=== PATIENT | male | born 1990 | race Hispanic/Latino ===

== ENCOUNTER 2016-10-24 06:08 | Day surgery (SDC) | payer MEDICARE, MEDICAID ==
[~2016-10-24 06:08] MED LIST: DECADRON ONE; NACL 0.9% 1000 ML 1,000 ML IV SCH; NORMODYNE IV ONE; VANCOMYCIN/NS 1 GM/250 ML 1 GM/250 ML BAG IV NR; XYLOCAINE MPF 2% ONE; ZOFRAN ONE
[2016-10-24 07:43] LABS: INR 1.28 (0.87-1.13)
[2016-10-24 07:44] LABS: Anion Gap 17 mmol/L; BUN/Creatinine Ratio 12.85; Blood Urea Nitrogen 9 mg/dL (9-20); Calcium 8.4 mg/dL (8.4-10.2); Carbon Dioxide 21 mmol/L (22-30); Glucose 94 mg/dL (75-100); Partial Thromboplastin Time 25.9 Sec. (24.2-36.6); Potassium 3.7 mmol/L (3.6-5.0); Sodium 138 mmol/L (137-145)
[2016-10-24 07:50] LABS: Hematocrit TNR % (35.5-45.6); Hemoglobin TNR gm/dl (11.8-15.2); Mean Corpuscular HGB Conc TNR % (32-34); Mean Corpuscular Hemoglobin TNR pg (28-32); Mean Corpuscular Volume TNR fl (84-94); Mean Platelet Volume TNR fl (6-12); Platelet Count TNR K/mm3 (140-440); Red Blood Count TNR M/mm3 (3.65-5.03); Red Cell Distribution Width TNR % (13.2-15.2); White Blood Count TNR K/mm3 (4.5-11.0)
[2016-10-24 07:51] LABS: Basophils % (Auto) TNR % (0.0-1.8); Diff Status TNR; Eosinophils % (Auto) TNR % (0.0-4.3)
[2016-10-24 09:16] LABS: Basophils % (Auto) 0.7 % (0.0-1.8); Eosinophils % (Auto) 2.8 % (0.0-4.3); Hematocrit 32.8 % (35.5-45.6); Hemoglobin 10.1 gm/dl (11.8-15.2); Mean Corpuscular HGB Conc 31 % (32-34); Mean Corpuscular Hemoglobin 22 pg (28-32); Mean Corpuscular Volume 70 fl (84-94); Platelet Count 230 K/mm3 (140-440); Red Blood Count 4.68 M/mm3 (3.65-5.03); White Blood Count 4.6 K/mm3 (4.5-11.0)
--- NOTE | 2016-10-24 09:52 | Anesthesia Consultation ---
Anesthesia Consult and Med Hx Date of service: 10/24/16 - Airway Anesthetic Teeth Evaluation: Poor, Chipped (multiple missing broken carries) ROM Head & Neck: Adequate Mental/Hyoid Distance: Adequate Mallampati Class: Class IV Intubation Access Assessment: Possibly Difficult - Pulmonary Exam CTA: Yes - Cardiac Exam Cardiac Exam: RRR - Pre-Operative Health Status ASA Pre-Surgery Classification: ASA3 Proposed Anesthetic Plan: General - Pulmonary Hx Asthma: Yes COPD: Yes Hx Sleep Apnea: Yes (Uses CPAP) - Cardiovascular System Hx Hypertension: Yes Hx Heart Attack/AMI: Yes (2010?) Hx Angina: Yes Hx Pacemaker: No Hx Heart Murmur: Yes - Central Nervous System Hx Seizures: Yes 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 TIA. [place] - 2010? Chrons DZ. Anxiety Depressio
--- NOTE | 2016-10-24 09:54 | Anesthesia Day of Surgery ---
Anesthesia Day of Surgery - Day of Surgery Patient Examined: Yes Patient H&P Reviewed: Yes Patient is NPO: Yes
[2016-10-24] MEDS ORDERED: VERSED IV ONE ×2 (10:43→10:50)
[2016-10-24] MEDS ORDERED: DILAUDID ONE ×2 (14:17→17:52)
[2016-10-24] MEDS ORDERED: DIPRIVAN 10 MG/ML IV ONE (14:17)
[2016-10-24] MEDS ORDERED: VERSED ONE (14:24)
[2016-10-24] MEDS ORDERED: VANCOMYCIN/NS 1 GM/250 ML 1 GM/250 ML BAG IV ONE (14:32)
[2016-10-24] MEDS ORDERED: HEPARIN/NS 5000 UNIT/500ML(CATH LAB) 500 ML IR ONE (14:42)
[2016-10-24] MEDS ORDERED: XYLOCAINE 2% INFILTRATI ONE ×2 (14:43→15:05)
[2016-10-24] MEDS ORDERED: HEPARIN 10,000 UNITS/10 ML ONE (15:19)
[2016-10-24] MEDS ORDERED: XYLOCAINE 2%/ EPI 1:200,000 INFILTRATI ONE (16:13)
--- NOTE | 2016-10-24 16:36 | Short Stay Summary ---
Short Stay Documentation Date of service: 10/24/16 Narrative H&P: 26 year old male with gastric bypass who has a right sided port for iron infusion which causes immense pain when infused preventing infusions. Needs port placement and port removal. - History Principal diagnosis: Port malfunction H&P: obtained from office - Allergies and Medications Current Medications: Allergies aspirin Allergy (Verified 05/26/14 23:56) Itching hives and itching cefaclor [From Ceclor] Allergy (Verified 05/26/14 23:56) Hives Penicillins Allergy (Verified 05/26/14 23:56) Hives tramadol Allergy (Unverified 10/24/16 06:09) Seizure haloperidol [From Haldol] Adverse Reaction (Unverified 10/24/16 06:10) ADVERSE REACTION haloperidol lactate [From Haldol] Adverse Reaction (Unverified 10/24/16 06:10) ADVERSE REACTION Home Medications Medication Instructions Recorded Confirmed Last Taken Type Diltiazem HCl [Cardizem LA] 180 mg PO BID 05/27/14 10/24/16 10/23/16 History Baclofen [Lioresal] 10 mg PO TID 09/15/14 10/24/16 10/23/16 History Lacosamide [Vimpat] 200 mg PO BID 09/15/14 04/24/15 04/24/15 History Dicyclomine [Bentyl] 20 mg PO QID #20 tablet 04/24/15 10/24/16 10/23/16 Rx FLUoxetine [PROzac] 20 mg PO QDAY 04/24/15 10/24/16 10/23/16 History LORazepam [Ativan] 2 mg PO BID 04/24/15 10/24/16 04/24/15 History Lacosamide [Vimpat] 200 mg PO BID 04/24/15 10/24/16 10/23/16 History Omeprazole [PriLOSEC] 20 mg PO QDAY #60 capsule. 04/24/15 10/24/16 10/23/16 Rx Phenytoin Chew [Dilantin Chew] 50 mg PO Q8H 04/24/15 10/24/16 10/23/16 History Primidone [Mysoline] 50 mg PO HS 04/24/15 10/24/16 10/23/16 History Sucralfate [Carafate] 1 gm PO BID #20 tablet 04/24/15 10/24/16 10/23/16 Rx Topiramate [Topamax] 25 mg PO BID 04/24/15 10/24/16 10/23/16 History carBAMazepine [TEGretol] 400 mg PO Q6HR 04/24/15 10/24/16 10/23/16 History tiZANidine [Zanaflex] 4 mg PO Q8HR 04/24/15 10/24/16 10/23/16 History Active Medications Sodium Chloride (Nacl 0.9% 1000 Ml) 1,000 mls @ 42 mls/hr IV DIRECT NARGIS Stop: 10/24/16 23:59 Last Admin: 10/24/16 08:31 Dose: 42 mls/hr - Physical exam General appearance: no acute distress HEENT: EOMI Lungs: Normal air movement Gastrointestinal: normal Extremities: normal temperature, normal color - Brief post op/procedure progress note Date of procedure: 10/24/16 Pre-op diagnosis: Port malfunction Post-op diagnosis: same Procedure: 1. Port placement 2. Port removal Anesthesia: local (w/ conscious sedation) Surgeon: KRISHNA ANDREWS Estimated blood loss: minimal Condition: stable - Hospital course Hospital course: Tolerated procedure well. No issues. - Disposition Condition at discharge: Stable Disposition: [id number] TO HOME OR SELFCARE - Discharge Diagnoses (1) Complications of gastric bypass surgery Status: Acute (2) Malfunction of portocaval shunt Status: Acute Qualifiers: Encounter type: E Short Stay Discharge Plan Activity: advance as tolerated Weight Bearing Status: Weight Bear as Tolerated Diet: advance as tolerated Wound: keep clean and dry, other (do not get wound wet for 1 week; sponge bath for 1st week ; take off clear adhesive after 24 hrs ) Follow up with: PRIMARY CARE, [Primary Care Provider] - 7 Days
--- NOTE | 2016-10-24 16:39 | Operative Report ---
Operative Report Operative Report: EXAM: 1. Ultrasound-guided puncture of the left internal jugular vein 2. Injection from the left internal jugular vein sheath 3. Venography of the SVC 4. Fluoroscopic-guided placement of a left internal jugular tunneled 8 Fr BARD Power port placement. 5. Fluoroscopic-guided removal of a right subclavian vein port DATE: 10/24/16 INDICATION: 26-year-old male status post gastric bypass requiring iron infusions with right-sided port malfunction. MEDICATIONS: Please see nursing report for full details. ANESTHESIA: GETA DEVICES: 8 Fr single lumen power port CONTRAST: None TOOL CHECKER: Shlomo Wang MD PROCEDURE: The risks, benefits, and alternatives were discussed and informed consent was obtained. The patient was transported to the angiography suite in satisfactory/ stable condition and was transported onto the angiography table. The patient's left internal jugular vein was assessed with ultrasound and determined to be patent prior to procedure. The patient was prepped and draped in a sterile fashion. The puncture site was anesthetized. Under sonographic guidance, the left internal jugular vein was punctured with a 21-gauge micropuncture needle and a 0.018 inch wire was advanced into the inferior vena cava. The micropuncture needle was exchanged for a transitional dilator and the wire was retracted into the right atrium to dayo intravascular distance. The wire and inner dilator were removed. Digital subtraction angiography was performed to the sheath demonstrating patency of the left innominate vein and the superior vena cava. 0.035 inch Amplatz wire was advanced through the transitional dilator into the inferior vena cava. A suitable port pocket site was identified on the patient's chest inferior and lateral to the venotomy. The site was anesthetized with local anesthetic at the pocket and the track was anesthetized. Incision was made with a 15 blade extending approximately 2 cm. The port was created with the use of a hemostat and hemostasis was achieved with manual compression and with the use of a Bovie device. The port pocket was irrigated. The port was tested and the port was attached to the tubing. The port was the retested and attached to the tunneling device. The port was placed in the pocket and then tunneled to the venotomy. The port tubing was cut to predetermined length. Over the 0.035 inch wire, serial dilatation was performed with ultimate placement of a peel-away sheath. The catheter was advanced through the peel- away sheath after the wire was removed and positioned centrally under fluoroscopic guidance. The peel-away sheath was removed. The pocket was closed in 2 layers with multiple deep interrupted 3-0 Vicryl sutures with a running subcuticular 4-0 Vicryl suture. The venotomy was closed with a single deep interrupted 3-0 Vicryl suture. Dermabond was applied to both sites and Steri-Strips were then applied. The port was the catheter was charged with heparin 200 units/mL. Sterile dressing applied. Attention was then switched to the right chest. Area around the port was prepped and draped in a sterile fashion. The port site was then anesthetized with local anesthetic. 10 blade was used to make a 2.5 centimeter incision along the existing port healed incision. Curved hemostats were used to slowly separate the site and expose the port. As this was done, hemostasis was achieved with the use of compression and Bovie. The port tubing was expose the tubing was clamped. The tubing was then freed and completely extracted. Pressure was held at the prior venotomy sites after tubing removal until hemostasis was achieved. Securing sutures were cut and the port was then removed intact. The area was then evaluated and washed with sterile saline. Hemostasis was achieved with manual compression. The site was then closed in 2 layers with interrupted 3-0 Vicryl sutures and a running 4-0 Vicryl subcuticular suture. Dermabond was applied. Steri-Strips were applied. Sterile dressing was then applied. The patient tolerated the procedure well. There were no immediate postprocedural complications. The patient was transferred from the angiography suite back to the PACU unit in stable. FINDINGS: 1. Excellent flow was obtained through the left sided port. 2. The left sided catheter tip is in the right atrium. 3. Patency of the left innominate vein and the superior vena cava. 4. Successful removal of a right subclavian port. [employer] radiograph demonstrates a intact port. Post procedural radiograph demonstrates successful right chest port removal without residual right chest tubing. IMPRESSION: 1. Successful ultrasound and fluoroscopically guided placement of a left internal jugular tunneled 8 [place] Bard signal lumen power port. 2. Fluoroscopic-guided removal of a right subclavian vein port
--- NOTE | 2016-10-24 17:48 | Post Anesthesia Evaluation ---
- Post Anesthesia Evaluation Patient Participated: Yes Airway Patent: Yes Stable Respiratory Function: Yes Temp > 96.8F: Yes Pain Manageable: Yes Adequeate Hydration: Yes Anesthesia Complications: No Block Receding Appropriately: Not Applicable
[2016-10-24] MEDS ORDERED: DILAUDID IV PRN (17:59)
[2016-10-24] MEDS ORDERED: TORADOL IV ONE (18:20)
[2016-10-24] MEDS ORDERED: PERCOCET 5/325 PO ONE (18:38)
[2016-10-24 19:20] VITALS: BP 133/96
--- NOTE | 2016-10-25 07:31 | Vascular Lab Report ---
MISCELLANEOUS VESSEL IDENTIFICATION: COMMENTS ON THE SCAN: The left internal jugular vein was identified and under real-time ultrasound guidance was cannulated. IMPRESSION: Successful ultrasound guided vein cannulation.
== END 2016-10-24 19:30 | disposition home or self-care (01) ==
LOC: OPU 06:08
PROVIDERS: ATTEND Radiology Diagnostic Radiology
DX: T82.594A Other mechanical complication of infusion catheter, initial encounter (principal); D64.9 Anemia, unspecified; I10 Essential (primary) hypertension; K21.9 Gastro-esophageal reflux disease without esophagitis; F17.200 Nicotine dependence, unspecified, uncomplicated; J44.9 Chronic obstructive pulmonary disease, unspecified; G47.30 Sleep apnea, unspecified; E11.9 Type 2 diabetes mellitus without complications; I70.211 Atherosclerosis of native arteries of extremities with intermittent claudication, right leg; I87.2 Venous insufficiency (chronic) (peripheral); E66.9 Obesity, unspecified; Z68.37 Body mass index [BMI] 37.0-37.9, adult; Z87.19 Personal history of other diseases of the digestive system; Z98.84 Bariatric surgery status; Z79.899 Other long term (current) drug therapy; Z88.8 Allergy status to other drugs, medicaments and biological substances; Z88.0 Allergy status to penicillin; Z86.73 Personal history of transient ischemic attack (TIA), and cerebral infarction without residual deficits; Z88.1 Allergy status to other antibiotic agents; Z80.9 Family history of malignant neoplasm, unspecified; Z82.49 Family history of ischemic heart disease and other diseases of the circulatory system; Z83.6 Family history of other diseases of the respiratory system; Y83.8 Other surgical procedures as the cause of abnormal reaction of the patient, or of later complication, without mention of misadventure at the time of the procedure
CPT/HCPCS: 36415; 36561; 36590; 76937; 80048; 82962; 85025; 85610; 85730; 96374; 96375; 96376; C1769; C1788; J1100; J1170; J1644; J1885; J2250; J2405; J2704; J3370; J7030; Q9967

== ENCOUNTER 2020-08-24 07:39 | Emergency (ER) | payer MEDICARE ==
--- NOTE | 2020-08-24 08:12 | Event Note ---
ED Screening Note Date of service: 08/24/20 Time: 08:11 ED Screening Note: 30-year-old male resents to the ER today with complaints of coffee-ground emesis and diarrhea and epigastric pain since yesterday. Past medical history significant for gastric bypass in 2010, upper GI bleed requiring blood transfusion about a year ago, and history of small bowel obstruction His GI specialist is Dr. Amor Status post appendectomy and cholecystectomy He denies EtOH abuse, NSAID abuse, known gastric ulcers This initial assessment/diagnostic orders/clinical plan/treatment(s) is/are subject to change based on patients health status, clinical progression and re- assessment by fellow clinical providers in the ED. Further treatment and workup at subsequent clinical providers discretion. Patient/guardian urged not to elope from the ED as their condition may be serious if not clinically assessed and ma naged. Initial orders include: Abdominal pain order set
[2020-08-24] MEDS ORDERED: ONDANSETRON 4 MG/2 ML INJ IV ONE (08:22)
--- NOTE | 2020-08-24 08:23 | Emergency Department Report ---
ED General Adult HPI - General Chief complaint: Abdominal Pain Stated complaint: STOMACH PAIN/VOMITTING BLOOD Time Seen by Provider: 08/24/20 08:20 Source: patient Mode of arrival: Ambulatory Limitations: No Limitations - History of Present Illness Initial comments: Patient is a 30-year-old male with history of gastric bypass 10 years ago for severe obesity (700 pounds) who presents emergency department for evaluation of 24 hours of constant moderate sharp epigastric pain associated with nausea and vomiting with possible blood. Patient denies diarrhea, denies fever. Patient denies chest pain or shortness of breath. - Related Data Home Medications Medication Instructions Recorded Confirmed Last Taken Diltiazem HCl [Cardizem LA] 180 mg PO BID 05/27/14 10/24/16 10/23/16 180 mg Baclofen [Lioresal] 10 mg PO TID 09/15/14 10/24/16 10/23/16 Lacosamide [Vimpat] 200 mg PO BID 09/15/14 04/24/15 04/24/15 FLUoxetine [PROzac] 20 mg PO QDAY 04/24/15 10/24/16 10/23/16 LORazepam [Ativan] 2 mg PO BID 04/24/15 10/24/16 04/24/15 Lacosamide [Vimpat] 200 mg PO BID 04/24/15 10/24/16 10/23/16 Phenytoin Chew [Dilantin Chew] 50 mg PO Q8H 04/24/15 10/24/16 10/23/16 Primidone [Mysoline] 50 mg PO HS 04/24/15 10/24/16 10/23/16 Topiramate [Topamax] 25 mg PO BID 04/24/15 10/24/16 10/23/16 carBAMazepine [TEGretol] 400 mg PO Q6HR 04/24/15 10/24/16 10/23/16 tiZANidine [Zanaflex] 4 mg PO Q8HR 04/24/15 10/24/16 10/23/16 Previous Rx's Medication Instructions Recorded Last Taken Type Dicyclomine [Bentyl] 20 mg PO QID #20 tablet 04/24/15 10/23/16 Rx Omeprazole [PriLOSEC] 20 mg PO QDAY #60 capsule. 04/24/15 10/23/16 Rx Sucralfate [Carafate] 1 gm PO BID #20 tablet 04/24/15 10/23/16 Rx HYDROmorphone [Dilaudid] 2 mg PO Q4HR PRN #20 tablet 10/24/16 Unknown Rx oxyCODONE [roxiCODONE] 5 mg PO Q6HR PRN #30 tablet 10/24/16 Unknown Rx Pantoprazole Sodium [Protonix] 40 mg PO BID #60 granpkt. 08/24/20 Unknown Rx Sucralfate [Carafate] 1 gm PO Q6HR #30 udc 08/24/20 Unknown Rx Allergies Allergy/AdvReac Type Severity Reaction Status Date / Time aspirin Allergy Itching Verified 08/24/20 07:49 cefaclor [From Ceclor] Allergy Hives Verified 08/24/20 07:49 Penicillins Allergy Hives Verified 08/24/20 07:49 tramadol Allergy Seizure Verified 08/24/20 07:49 haloperidol [From Haldol] AdvReac ADVERSE Verified 08/24/20 07:49 REACTION haloperidol lactate AdvReac ADVERSE Verified 08/24/20 07:49 [From Haldol] REACTION ED Review of Systems ROS: Stated complaint: STOMACH PAIN/VOMITTING BLOOD Other details as noted in HPI Comment: All other systems reviewed and negative ED Past Medical Hx - Past Medical History Hx Hypertension: Yes 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 gastritis, protein C deficiency - Surgical History Hx Coronary Stent: No Hx Pacemaker: No Hx Cholecystectomy: Yes Hx Appendectomy: Yes Additional Surgical History: gastric bypass (2010), - Social History Smoking Status: Never Smoker Substance Use Type: None - Medications Home Medications: Home Medications Medication Instructions Recorded Confirmed Last Taken Type Diltiazem HCl [Cardizem LA] 180 mg PO BID 05/27/14 10/24/16 10/23/16 History 180 mg Baclofen [Lioresal] 10 mg PO TID 09/15/14 10/24/16 10/23/16 History Lacosamide [Vimpat] 200 mg PO BID 09/15/14 04/24/15 04/24/15 History Dicyclomine [Bentyl] 20 mg PO QID #20 tablet 04/24/15 10/24/16 10/23/16 Rx FLUoxetine [PROzac] 20 mg PO QDAY 04/24/15 10/24/16 10/23/16 History LORazepam [Ativan] 2 mg PO BID 04/24/15 10/24/16 04/24/15 History Lacosamide [Vimpat] 200 mg PO BID 04/24/15 10/24/16 10/23/16 History Omeprazole [PriLOSEC] 20 mg PO QDAY #60 capsule. 04/24/15 10/24/16 10/23/16 Rx Phenytoin Chew [Dilantin Chew] 50 mg PO Q8H 04/24/15 10/24/16 10/23/16 History Primidone [Mysoline] 50 mg PO HS 04/24/15 10/24/16 10/23/16 History Sucralfate [Carafate] 1 gm PO BID #20 tablet 04/24/15 10/24/16 10/23/16 Rx Topiramate [Topamax] 25 mg PO BID 04/24/15 10/24/16 10/23/16 History carBAMazepine [TEGretol] 400 mg PO Q6HR 04/24/15 10/24/16 10/23/16 History tiZANidine [Zanaflex] 4 mg PO Q8HR 04/24/15 10/24/16 10/23/16 History HYDROmorphone [Dilaudid] 2 mg PO Q4HR PRN #20 tablet 10/24/16 Unknown Rx oxyCODONE [roxiCODONE] 5 mg PO Q6HR PRN #30 tablet 10/24/16 Unknown Rx Pantoprazole Sodium [Protonix] 40 mg PO BID #60 granpkt. 08/24/20 Unknown Rx Sucralfate [Carafate] 1 gm PO Q6HR #30 udc 08/24/20 Unknown Rx ED Physical Exam - General Limitations: No Limitations General appearance: alert, in no apparent distress - Head Head exam: Present: atraumatic, normocephalic - Eye Eye exam: Present: normal appearance - ENT ENT exam: Present: mucous membranes moist - Neck Neck exam: Present: normal inspection - Respiratory Respiratory exam: Present: normal lung sounds bilaterally. Absent: respiratory distress - Cardiovascular Cardiovascular Exam: Present: regular rate, normal rhythm - GI/Abdominal GI/Abdominal exam: Present: soft, tenderness (Moderate epigastric tenderness), normal bowel sounds - Rectal Rectal exam: Present: deferred - Extremities Exam Extremities exam: Present: normal inspection - Back Exam Back exam: Present: normal inspection - Neurological Exam Neurological exam: Present: alert, oriented X3 - Psychiatric Psychiatric exam: Present: normal affect, normal mood - Skin Skin exam: Present: warm, dry, intact, normal color. Absent: rash ED Course Vital Signs 08/24/20 08/24/20 07:53 13:07 Temperature 98.6 F Pulse Rate 91 H 87 Respiratory 20 18 Rate Blood Pressure 152/92 Blood Pressure 147/93 [Left] O2 Sat by Pulse 98 98 Oximetry - Reevaluation(s) Reevaluation #1: 08/24/20 08:58 Patient initially treated with IV morphine 2 mg x 1, IV Zofran 4 mg x 1, IV normal saline 1 L x 1. Patient states he has no reaction to IV contrast, however, has allergic reaction to p.o. contrast, noting he got hives when drinking contrast at a hospital in [place]. Advised patient premedicate given risk of leak at site of previous surgery, patient now states he gets short of breath from p.o. contrast. Consequently given barium as alternative p.o. contrast. 08/24/20 08:59 08/24/20 10:00 Dr. Bose contacted, case discussed, recommends no intervention at present time, recommends consult surgery. Case discussed with Dr. Tierney who discusses with Dr. Stout and reviews films/diagnostics, Dr. Tierney recommends outpatient follow-up with Rx for protonix and carafate. Discussed at length with patient results of diagnostics and plan. Printed out and reviewed CT findings with patient, patient given copy of report. Patient flagged on [facility] government website as being suspicious for doctor shopping for narcotic pain medication, patient alerted to the status, is advised to minimize narcotic pain medication as tolerated. ED Medical Decision Making - Lab Data Result diagrams: 08/24/20 08:10 08/24/20 08:10 Labs 08/24/20 08/24/20 08/24/20 08:10 08:10 08:20 WBC 4.9 RBC 4.55 Hgb 10.3 L Hct 32.8 L MCV 72 L MCH 23 L MCHC 32 RDW 16.4 H Plt Count 206 Lymph % (Auto) 19.3 [place] % (Auto) 9.0 H Eos % (Auto) 1.1 Baso % (Auto) 0.5 Lymph # (Auto) 1.0 L [place] # (Auto) 0.4 Eos # (Auto) 0.1 Baso # (Auto) 0.0 Seg Neutrophils % 70.1 H Seg Neutrophils # 3.5 Sodium 135 L Potassium 4.1 Chloride 102.1 Carbon Dioxide 25 Anion Gap 12 BUN 11 Creatinine 0.8 Estimated GFR > 60 BUN/Creatinine Ratio 14 Glucose 92 Calcium 8.8 Total Bilirubin 0.30 AST 19 ALT 17 Alkaline Phosphatase 117 Total Protein 7.0 Albumin 4.1 Albumin/Globulin Ratio 1.4 Lipase 24 Urine Color Urine Turbidity Urine pH Ur Specific [place] Urine Protein Urine Glucose (UA) Urine Ketones Urine Blood Urine Nitrite Ur Reducing Substances Urine Bilirubin Urine Ictotest Urine Urobilinogen Ur Leukocyte Esterase Urine WBC (Auto) Urine RBC (Auto) U Epithel Cells (Auto) Blood Type A POSITIVE Antibody Screen Negative 08/24/20 Unknown WBC RBC Hgb Hct MCV MCH MCHC RDW Plt Count Lymph % (Auto) [place] % (Auto) Eos % (Auto) Baso % (Auto) Lymph # (Auto) [place] # (Auto) Eos # (Auto) Baso # (Auto) Seg Neutrophils % Seg Neutrophils # Sodium Potassium Chloride Carbon Dioxide Anion Gap BUN Creatinine Estimated GFR BUN/Creatinine Ratio Glucose Calcium Total Bilirubin AST ALT Alkaline Phosphatase Total Protein Albumin Albumin/Globulin Ratio Lipase Urine Color Yellow Urine Turbidity Clear Urine pH 6.0 Ur Specific Florence 1.018 Urine Protein <15 mg/dl Urine Glucose (UA) Neg Urine Ketones Neg Urine Blood Neg Urine Nitrite Neg Ur Reducing Substances Not Reportable Urine Bilirubin Neg Urine Ictotest Not Reportable Urine Urobilinogen < 2.0 Ur Leukocyte Esterase Neg Urine WBC (Auto) < 1.0 Urine RBC (Auto) < 1.0 U Epithel Cells (Auto) < 1.0 Blood Type Antibody Screen Vital Signs 08/24/20 07:53 Temperature 98.6 F Pulse Rate 91 H Respiratory 20 Rate Blood Pressure 152/92 O2 Sat by Pulse 98 Oximetry - Radiology Data Radiology results: report reviewed CT ABDOMEN AND PELVIS WITH CONTRAST INDICATION / CLINICAL INFORMATION: Abdominal pain. TECHNIQUE: Axial CT images were obtained through the abdomen and pelvis after IV contrast. All CT scans at this location are performed using CT dose reduction for ALARA by means of automated exposure control. COMPARISON: None available. FINDINGS: LOWER CHEST: No significant abnormality LIVER: No significant abnormality GALLBLADDER/BILIARY TREE: Cholecystectomy. PANCREAS: No significant abnormality SPLEEN: No significant abnormality ADRENALS: No significant abnormality KIDNEYS / URETER: No significant abnormality URINARY BLADDER: No significant abnormality REPRODUCTIVE ORGANS: No significant abnormality STOMACH / SMALL BOWEL: There are postoperative changes of gastric bypass with intussusception at the small bowel anastomosis. No evidence of obstruction. No bowel inflammation. COLON: The colon is unremarkable. Surgical changes about the cecum most likely reflect prior appendectomy. LYMPH NODES: No significant adenopathy. VASCULATURE: Abdominal aorta is normal in caliber. IVC filter is demonstrated within the infrarenal IVC. OTHER: No free air, free fluid, or focal fluid collection is identified. SKELETAL SYSTEM: No acute osseous findings. IMPRESSION: 1. Gastric bypass with intussusception of the small bowel anastomosis. This is typically transient and likely postsurgical in etiology. Recommend continued follow-up to resolution. No evidence of bowel obstruction or inflammation. 2. Otherwise, no acute abnormality. 3. IVC filter, as below. IVC Filter Recommendation: IVC filters should be removed if possible when they are no longer clinically necessary. (1) Refer to the established IVC filter management plan; (2) If there is no established plan for the patient's IVC filter, consider referral to interventional/vascular clinician on a nonemergent basis for evaluation. Signer Name: Deb Borges MD Signed: 08/24/2020 10:33 AM Workstation Name: [facility] Transcribed By: MARTINEZ Dictated By: DEB BORGES MD Electronically Authenticated By: DEB BORGES MD Signed Date/Time: 08/24/20 1033 - Medical Decision Making 08/01/2020 1 08/01/2020 FENTANYL 50 MCG/HR PATCH 10.0 30 [place] AGR [id number] PIEDM ([id number]) 0 120.0 [place] 07/04/2020 1 07/04/2020 OXYCODONE- ACETAMINOPHEN 10-325 84.0 28 KING AGR [id number] PIEDM (8746) 0 45.0 [place] 06/28/2020 3 06/28/2020 LORAZEPAM 2 MG/ML VIAL 25.0 25 OG IWU [id number] DAVIS ([id number]) 0 [place] 06/25/2020 4 06/25/2020 OXYCODONE- ACETAMINOPHEN 5-325 10.0 2 [place] UGB [id number] CHARLEY (8247) 0 37.5 [place] 06/20/2020 3 06/19/2020 OXYCODONE- ACETAMINOPHEN 5-325 9.0 3 AL YOU [id number] HUDSO (6391) 0 22.5 [place] 06/08/2020 1 06/08/2020 OXYCODONE- ACETAMINOPHEN 5-325 30.0 10 AL SAF [id number] PIEDM (8746) 0 22.5 [place] 05/31/2020 4 05/26/2020 FENTANYL 50 MCG/HR PATCH 2.0 7 AN KE [id number] CHARLEY ([id number]) 0 102.86 [place] 05/29/2020 2 05/26/2020 OXYCODONE- ACETAMINOPHEN 10-325 10.0 2 AN KE [id number] BRI ([id number]) 0 75.0 [place] 05/17/2020 3 05/15/2020 OXYCODONE- ACETAMINOPHEN 5-325 45.0 15 KH RUY [id number] HUDSO (4791) 0 22.5 [place] 05/16/2020 3 05/16/2020 LORAZEPAM 2 MG/ML VIAL 25.0 25 OG IWU [id number] HUDSO (4791) 0 [place] 05/02/2020 3 05/02/2020 OXYCODONE-ACETA MINOPHEN 5-325 45.0 15 KH RUY [id number] HUDSO (4791) 0 22.5 [place] 04/29/2020 2 04/28/2020 HYDROCODONE- ACETAMIN 5-325 MG 5.0 1 NA JAIMES [id number] BRI ([id number]) 0 25.0 [place] 04/25/2020 3 04/25/2020 HYDROCODONE- ACETAMIN 5-325 MG 8.0 2 AL LEV [id number] HUDSO (1191) 0 20.0 [place] 04/18/2020 3 04/14/2020 LORAZEPAM 2 MG/ML VIAL 25.0 25 OG IWU [id number] HUDSO (4791) 0 [place] 04/18/2020 3 04/14/2020 LORAZEPAM 2 MG/ML VIAL 1.0 25 OG IWU [id number] HUDSO (4791) 0 Comm Ins 04/11/2020 2 04/03/2020 HYDROCODONE-ACETAMIN 5-325 MG 5.0 2 ANA ROSA AMANDA [id number] BRI (0516) 0 12.5 [place] 03/18/2020 4 03/18/2020 HYDROMORPHONE 4 MG TABLET 60.0 30 ID ALL [id number] CHARLEY ([id number]) 0 32.0 [place] 02/17/2020 4 02/17/2020 MORPHINE SULF ER 15 MG TABLET 60.0 30 ID ALL [id number] CHARLEY ([id number]) 0 30.0 [place] 02/08/2020 5 02/08/2020 HYDROCODONE- ACETAMIN 5-325 MG 60.0 30 ID ALL [id number] CHARLEY ([id number]) 0 10.0 [place] 01/20/2020 4 01/20/2020 XTAMPZA ER 13.5 MG CAPSULE 60.0 30 ID ALL [id number] CHARLEY ([id number]) 0 40.5 [place] 01/13/2020 4 01/13/2020 OXYCODONE- ACETAMINOPHEN 10-325 20.0 3 JA FRA [id number] CHARLEY ([id number]) 0 100.0 MME Comm Ins 01/10/2020 3 08/25/2019 LORAZEPAM 2 MG/ML VIAL 10.0 10 OG U [id number] HUDSO (4791) 4 [place] 01/03/2020 4 01/03/2020 HYDROCODONE- ACETAMIN 5-325 MG 60.0 30 ID ALL [id number] CHARLEY ([id number]) 0 10.0 [place] 12/15/2019 2 12/13/2019 LORAZEPAM 2 MG TABLET 30.0 30 PO ARNALDO [id number] BRI (0585) 0 [place] 12/04/2019 4 12/01/2019 HYDROMORPHONE 4 MG TABLET 90.0 30 ID ALL [id number] CHARLEY ([id number]) 0 48.0 [place] Critical care attestation.: If time is entered above; I have spent that time in minutes in the direct care of this critically ill patient, excluding procedure time. ED Disposition Clinical Impression: Abdominal pain, Intussusception Disposition: DC-01 TO HOME OR SELFCARE Is pt being admited?: No Condition: Stable Instructions: Abdominal Pain, Adult, [id number], Intussusception, Pediatric Additional Instructions: Follow-up with surgery and/or PMD and/or GI in 1 to 2 days for reevaluation. Please note you may require further imaging to ensure resolution of intussusception occurring after previous surgery site. Return to the emergency department for worsening symptoms. Prescriptions: Sucralfate [Carafate] 1 gm PO Q6HR #30 udc Pantoprazole Sodium [Protonix] 40 mg PO BID #60 granpkt.dr Referrals: ELODIA KELLER [Other] - 3-5 Days NIVIA SONG MD [Staff Physician] - 3-5 Days HELGA STOUT MD [Staff Physician] - 3-5 Days
[2020-08-24 08:59] LABS: Basophils % (Auto) 0.5 % (0.0-1.8); Eosinophils # (Auto) 0.1 K/mm3 (0.0-0.4); Eosinophils % (Auto) 1.1 % (0.0-4.3); Hematocrit 32.8 % (35.5-45.6); Hemoglobin 10.3 gm/dl (11.8-15.2); Lymphocytes % (Auto) 19.3 % (13.4-35.0); Mean Corpuscular HGB Conc 32 % (32-34); Mean Corpuscular Volume 72 fl (84-94); Monocytes # (Auto) 0.4 K/mm3 (0.0-0.8); Platelet Count 206 K/mm3 (140-440); Red Blood Count 4.55 M/mm3 (3.65-5.03); Red Cell Distribution Width 16.4 % (13.2-15.2)
[2020-08-24] MEDS ORDERED: MORPHINE 2 MG/1 ML INJ IV ONE (08:59)
[2020-08-24 09:14] LABS: Alanine Aminotransferase 17 units/L (7-56); Albumin 4.1 g/dL (3.9-5); BUN/Creatinine Ratio 14; Blood Urea Nitrogen 11 mg/dL (9-20); Calcium 8.8 mg/dL (8.4-10.2); Hemolysis Index 2
[2020-08-24 09:31] LABS: Bilirubin,Urine NEG (Negative); Blood,Urine NEG (Negative); Color,Urine Yellow (Yellow); Protein,Urine <15 mg/dL mg/dL (Negative); Urobilinogen,Urine < 2.0 mg/dL (<2.0); WBC,Urine < 1.0 /HPF (0.0-6.0)
[2020-08-24 09:32] LABS: RBC,Urine < 1.0 /HPF (0.0-6.0)
--- NOTE | 2020-08-24 10:37 | Cat Scan Report ---
CT ABDOMEN AND PELVIS WITH CONTRAST INDICATION / CLINICAL INFORMATION: Abdominal pain. TECHNIQUE: Axial CT images were obtained through the abdomen and pelvis after IV contrast. All CT sc ans at this location are performed using CT dose reduction for ALARA by means of automated exposure c ontrol. COMPARISON: None available. FINDINGS: LOWER CHEST: No significant abnormality LIVER: No significant abnormality GALLBLADDER/BILIARY TREE: Cholecystectomy. PANCREAS: No significant abnormality SPLEEN: No significant abnormality ADRENALS: No significant abnormality KIDNEYS / URETER: No significant abnormality URINARY BLADDER: No significant abnormality REPRODUCTIVE ORGANS: No significant abnormality STOMACH / SMALL BOWEL: There are postoperative changes of gastric bypass with intussusception at the small bowel anastomosis. No evidence of obstruction. No bowel inflammation. COLON: The colon is unremarkable. Surgical changes about the cecum most likely reflect prior appendec kvng. LYMPH NODES: No significant adenopathy. VASCULATURE: Abdominal aorta is normal in caliber. IVC filter is demonstrated within the infrarenal I VC. OTHER: No free air, free fluid, or focal fluid collection is identified. SKELETAL SYSTEM: No acute osseous findings. IMPRESSION: 1. Gastric bypass with intussusception of the small bowel anastomosis. This is typically transient an d likely postsurgical in etiology. Recommend continued follow-up to resolution. No evidence of bowel obstruction or inflammation. 2. Otherwise, no acute abnormality. 3. IVC filter, as below. IVC Filter Recommendation: IVC filters should be removed if possible when they are no longer clinical ly necessary. (1) Refer to the established IVC filter management plan; (2) If there is no established plan for the patient's IVC filter, consider referral to interventional/vascular clinician on a nonem ergent basis for evaluation. Signer Name: Ever Borges MD Signed: 08/24/2020 10:33 AM Workstation Name: [employer]
[2020-08-24 13:08] VITALS: BP 147/93
== END 2020-08-24 13:08 | disposition home or self-care (01) ==
LOC: ED 07:39
DX: K56.1 Intussusception (principal); R10.13 Epigastric pain; I10 Essential (primary) hypertension; I25.2 Old myocardial infarction; E11.9 Type 2 diabetes mellitus without complications; K21.9 Gastro-esophageal reflux disease without esophagitis; G43.909 Migraine, unspecified, not intractable, without status migrainosus; R56.9 Unspecified convulsions; J44.9 Chronic obstructive pulmonary disease, unspecified; Z86.73 Personal history of transient ischemic attack (TIA), and cerebral infarction without residual deficits; Z90.49 Acquired absence of other specified parts of digestive tract; Z98.890 Other specified postprocedural states; Z79.899 Other long term (current) drug therapy; Z88.0 Allergy status to penicillin; Z88.8 Allergy status to other drugs, medicaments and biological substances
CPT/HCPCS: 36415; 74177; 80053; 81001; 83690; 85025; 86850; 86900; 86901; 96374; 96375; 99284; J2270; J2405; Q9967

== ENCOUNTER 2021-07-26 21:15 | Emergency (ER) | payer MEDICARE ==
[2021-07-26 22:25] VITALS: BP 153/93
[2021-07-26 22:58] LABS: Bilirubin,Urine NEG (Negative); Blood,Urine NEG (Negative); Color,Urine Yellow (Yellow); Mucus,Urine 1+ /HPF; Protein,Urine <15 mg/dL mg/dL (Negative); RBC,Urine < 1.0 /HPF (0.0-6.0)
== END 2021-07-27 02:35 | disposition left against medical advice (07) ==
LOC: ED 21:15
DX: K92.0 Hematemesis (principal); Z53.21 Procedure and treatment not carried out due to patient leaving prior to being seen by health care provider
CPT/HCPCS: 81001

== ENCOUNTER 2021-07-27 20:30 | Emergency (ER) | payer MEDICARE ==
[2021-07-27 20:49] VITALS: BP 153/93
[2021-07-27 21:11] LABS: Bilirubin,Urine NEG (Negative); Blood,Urine NEG (Negative); Color,Urine Yellow (Yellow); Mucus,Urine FEW /HPF; Protein,Urine <15 mg/dL mg/dL (Negative)
[2021-07-27 22:04] LABS: Alanine Aminotransferase 23 units/L (7-56); Albumin 4.2 g/dL (3.9-5); Blood Urea Nitrogen 16 mg/dL (9-20); Calcium 9.1 mg/dL (8.4-10.2); Hemolysis Index 128
[2021-07-27 22:16] LABS: BUN/Creatinine Ratio 23
[2021-07-27 22:34] LABS: Mean Corpuscular HGB Conc 28 % (32-34); Platelet Count 294 K/mm3 (140-440); Red Blood Count 5.72 M/mm3 (3.65-5.03)
[2021-07-27 22:47] LABS: Hemoglobin 11.1 gm/dl (11.8-15.2); Mean Corpuscular Volume 68 fl (84-94)
== END 2021-07-27 23:59 | disposition home or self-care (01) ==
LOC: ED 20:30
DX: K92.0 Hematemesis (principal); Z53.21 Procedure and treatment not carried out due to patient leaving prior to being seen by health care provider
CPT/HCPCS: 36415; 80053; 81001; 85025

== ENCOUNTER 2021-09-22 18:59 | Emergency (ER) | payer MEDICARE ==
[2021-09-22 21:34] LABS: Basophils # (Auto) 0.1 K/mm3 (0.0-0.1); Basophils % (Auto) 0.8 % (0.0-1.8); Eosinophils % (Auto) 0.1 % (0.0-4.3); Lymphocytes # (Auto) 1.1 K/mm3 (1.2-5.4); Lymphocytes % (Auto) 15.2 % (13.4-35.0); Mean Corpuscular HGB Conc 29 % (32-34); Monocytes # (Auto) 0.7 K/mm3 (0.0-0.8); Monocytes % (Auto) 9.7 % (0.0-7.3); Red Blood Count 5.53 M/mm3 (3.65-5.03); Red Cell Distribution Width 17.2 % (13.2-15.2)
[2021-09-22 21:41] LABS: Hematocrit 36.5 % (35.5-45.6); Hemoglobin 10.6 gm/dl (11.8-15.2); Mean Corpuscular Volume 66 fl (84-94); Platelet Count 188 K/mm3 (140-440)
[2021-09-22 21:55] LABS: Alanine Aminotransferase 21 units/L (7-56); BUN/Creatinine Ratio 17; Blood Urea Nitrogen 17 mg/dL (9-20); Calcium 9.7 mg/dL (8.4-10.2); Hemolysis Index 19
--- NOTE | 2021-09-23 11:45 | Emergency Department Report ---
ED GI Bleed HPI - General Chief complaint: GI Bleed Stated complaint: CHEST HURTING/VOMITING BLOOD Time Seen by Provider: 09/23/21 11:35 Source: patient Mode of arrival: Ambulatory Limitations: No Limitations - History of Present Illness Initial comments: Patient is a 31 years old male with history of gastric bypass surgery. Patient presented to the ER complaining of epigastric abdominal pain, sharp with no radiation. Patient stated that symptom associated with vomiting associated with blood at the end of the vomitus. Patient denied any fever or chills. He denied any melena or hematochezia. MD complaint: blood streaked emesis -: days(s) (5) Location: epigastric Radiation: none Quality: sharp Improves with: vomiting Context: history of GI bleed Associated Symptoms: abdominal pain, nausea, vomiting - Related Data Home Medications Medication Instructions Recorded Confirmed Last Taken Diltiazem HCl [Cardizem LA] 180 mg PO BID 05/27/14 10/24/16 10/23/16 180 mg Baclofen [Lioresal] 10 mg PO TID 09/15/14 10/24/16 10/23/16 Lacosamide [Vimpat] 200 mg PO BID 09/15/14 04/24/15 04/24/15 FLUoxetine [PROzac] 20 mg PO QDAY 04/24/15 10/24/16 10/23/16 LORazepam [Ativan] 2 mg PO BID 04/24/15 10/24/16 04/24/15 Lacosamide [Vimpat] 200 mg PO BID 04/24/15 10/24/16 10/23/16 Phenytoin Chew [Dilantin Chew] 50 mg PO Q8H 04/24/15 10/24/16 10/23/16 Primidone [Mysoline] 50 mg PO HS 04/24/15 10/24/16 10/23/16 Topiramate [Topamax] 25 mg PO BID 04/24/15 10/24/16 10/23/16 carBAMazepine [TEGretol] 400 mg PO Q6HR 04/24/15 10/24/16 10/23/16 tiZANidine [Zanaflex] 4 mg PO Q8HR 04/24/15 10/24/16 10/23/16 Previous Rx's Medication Instructions Recorded Last Taken Type Dicyclomine [Bentyl] 20 mg PO QID #20 tablet 04/24/15 10/23/16 Rx Omeprazole [PriLOSEC] 20 mg PO QDAY #60 capsule. 04/24/15 10/23/16 Rx Sucralfate [Carafate] 1 gm PO BID #20 tablet 04/24/15 10/23/16 Rx HYDROmorphone [Dilaudid] 2 mg PO Q4HR PRN #20 tablet 10/24/16 Unknown Rx oxyCODONE [roxiCODONE] 5 mg PO Q6HR PRN #30 tablet 10/24/16 Unknown Rx Pantoprazole Sodium [Protonix] 40 mg PO BID #60 granpkt. 08/24/20 Unknown Rx Sucralfate [Carafate] 1 gm PO Q6HR #30 udc 08/24/20 Unknown Rx Allergies Allergy/AdvReac Type Severity Reaction Status Date / Time aspirin Allergy Itching Verified 08/24/20 07:49 cefaclor [From Ceclor] Allergy Hives Verified 08/24/20 07:49 Penicillins Allergy Hives Verified 08/24/20 07:49 tramadol Allergy Seizure Verified 08/24/20 07:49 haloperidol [From Haldol] AdvReac ADVERSE Verified 08/24/20 07:49 REACTION haloperidol lactate AdvReac ADVERSE Verified 08/24/20 07:49 [From Haldol] REACTION ED Review of Systems ROS: Stated complaint: CHEST HURTING/VOMITING BLOOD Other details as noted in HPI Comment: All other systems reviewed and negative Constitutional: denies: chills, fever Respiratory: denies: cough, shortness of breath, SOB with exertion, SOB at rest Cardiovascular: palpitations. denies: chest pain Gastrointestinal: abdominal pain, nausea, vomiting, hematemesis. 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 gastritis, protein C deficiency - Surgical History Hx Coronary Stent: No Hx Pacemaker: No Hx Cholecystectomy: Yes Hx Appendectomy: Yes Additional Surgical History: gastric bypass (2010), - Social History Smoking Status: Never Smoker Substance Use Type: None - Medications Home Medications: Home Medications Medication Instructions Recorded Confirmed Last Taken Type Diltiazem HCl [Cardizem LA] 180 mg PO BID 05/27/14 10/24/16 10/23/16 History 180 mg Baclofen [Lioresal] 10 mg PO TID 09/15/14 10/24/16 10/23/16 History Lacosamide [Vimpat] 200 mg PO BID 09/15/14 04/24/15 04/24/15 History Dicyclomine [Bentyl] 20 mg PO QID #20 tablet 04/24/15 10/24/16 10/23/16 Rx FLUoxetine [PROzac] 20 mg PO QDAY 04/24/15 10/24/16 10/23/16 History LORazepam [Ativan] 2 mg PO BID 04/24/15 10/24/16 04/24/15 History Lacosamide [Vimpat] 200 mg PO BID 04/24/15 10/24/16 10/23/16 History Omeprazole [PriLOSEC] 20 mg PO QDAY #60 capsule. 04/24/15 10/24/16 10/23/16 Rx Phenytoin Chew [Dilantin Chew] 50 mg PO Q8H 04/24/15 10/24/16 10/23/16 History Primidone [Mysoline] 50 mg PO HS 04/24/15 10/24/16 10/23/16 History Sucralfate [Carafate] 1 gm PO BID #20 tablet 04/24/15 10/24/16 10/23/16 Rx Topiramate [Topamax] 25 mg PO BID 04/24/15 10/24/16 10/23/16 History carBAMazepine [TEGretol] 400 mg PO Q6HR 04/24/15 10/24/16 10/23/16 History tiZANidine [Zanaflex] 4 mg PO Q8HR 04/24/15 10/24/16 10/23/16 History HYDROmorphone [Dilaudid] 2 mg PO Q4HR PRN #20 tablet 10/24/16 Unknown Rx oxyCODONE [roxiCODONE] 5 mg PO Q6HR PRN #30 tablet 10/24/16 Unknown Rx Pantoprazole Sodium [Protonix] 40 mg PO BID #60 granpkt. 08/24/20 Unknown Rx Sucralfate [Carafate] 1 gm PO Q6HR #30 udc 08/24/20 Unknown Rx ED Physical Exam - General Limitations: No Limitations General appearance: alert, in no apparent distress - Head Head exam: Present: atraumatic, normocephalic, normal inspection - Eye Eye exam: Present: normal appearance - ENT ENT exam: Present: normal exam, normal orophraynx, mucous membranes moist - Neck Neck exam: Present: normal inspection, full ROM. Absent: tenderness, meningismus - Respiratory Respiratory exam: Present: normal lung sounds bilaterally - Cardiovascular Cardiovascular Exam: Present: regular rate, normal rhythm, normal heart sounds - GI/Abdominal GI/Abdominal exam: Present: soft, normal bowel sounds. Absent: distended, tenderness, guarding, rebound, rigid, organomegaly, mass, bruit, pulsatile mass, hernia - Extremities Exam Extremities exam: Present: normal inspection, full ROM, normal capillary refill. Absent: tenderness, pedal edema, joint swelling, calf tenderness - Back Exam Back exam: Present: normal inspection, full ROM. Absent: CVA tenderness (R), CVA tenderness (L), muscle spasm, paraspinal tenderness, vertebral tenderness - Neurological Exam Neurological exam: Present: alert, oriented X3, CN II-XII intact, normal gait, reflexes normal - Psychiatric Psychiatric exam: Present: normal mood - Skin Skin exam: Present: warm, intact, normal color ED Course Vital Signs 09/22/21 19:40 Temperature 98.1 F Pulse Rate 109 H Respiratory 18 Rate Blood Pressure 140/93 O2 Sat by Pulse 98 Oximetry ED Medical Decision Making - Lab Data Result diagrams: 09/22/21 20:21 09/22/21 20:21 - Radiology Data Radiology results: report reviewed - Medical Decision Making Patient is a 31 years old male with history of gastric bypass surgery. Patient presented to the ER complaining of epigastric abdominal pain, sharp with no radiation. Patient stated that symptom associated with vomiting associated with blood at the end of the vomitus. Patient denied any fever or chills. He denied any melena or hematochezia. Patient remained stable in the ER with stable vital sign. No vomiting blood or hematochezia observed in the ER. Patient received morphine and Zofran and Protonix. Patient stated that his symptom is much better. CT abdomen and pelvis showed no acute finding. 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 Doc Amor in the next 2 to 3 days and to return to the ER if he develop any new symptoms. Critical care attestation.: If time is entered above; I have spent that time in minutes in the direct care of this critically ill patient, excluding procedure time. ED Disposition Clinical Impression: GI bleed, Iron deficiency anemia, Nausea & vomiting Disposition: 01 HOME / SELF CARE / HOMELESS Is pt being admited?: No Condition: Stable Instructions: Gastrointestinal Bleeding Referrals: DANIEL GUTIÉRREZ MD [Primary Care Provider] - 3-5 Days NIVIA AMOR MD [Staff Physician] - 3-5 Days Forms: Accompanied Note
[2021-09-23 11:55] LABS: Bilirubin,Urine NEG (Negative); Blood,Urine NEG (Negative); Calcium Oxalate Crystals,Urine 1+; Color,Urine Amber (Yellow); Mucus,Urine 3+ /HPF; WBC,Urine < 1.0 /HPF (0.0-6.0)
[2021-09-23 11:58] LABS: RBC,Urine > 182.0 /HPF (0.0-6.0)
[2021-09-23 13:27] LABS: INR 1.1 (0.87-1.13)
[2021-09-23 13:28] LABS: Partial Thromboplastin Time 29.2 Sec. (24.2-36.6)
[2021-09-23] MEDS: MORPHINE 4 MG/1 ML INJ IV ONE (13:40)
[2021-09-23] MEDS: ONDANSETRON 4 MG/2 ML INJ IV ONE (13:49)
--- NOTE | 2021-09-23 14:07 | Cat Scan Report ---
CT abdomen pelvis wo con INDICATION / CLINICAL INFORMATION: abdominal pain. Nausea, vomiting TECHNIQUE: Axial CT imaging of abdomen and pelvis was obtained without contrast. Patient stated he was allergic to iodinated contrast. Coronal and sagittal reformatted imaging obtained and reviewed. All CT scans at this location are performed using CT dose reduction for ALARA by means of automated exposure contr ol. COMPARISON: Prior CT abdomen/pelvis 08/24/2020 FINDINGS: CT abdomen without contrast demonstrates grossly normal appearance of the liver, spleen, pancreas, ki dneys, and adrenal glands. Prior cholecystectomy. There is gastric bypass surgery noted. Previously n oted area of intussusception of the small bowel anastomosis is no longer identified, as noted on prio r CT scan from 08/24/2020. IVC filter is present. Abdominal aorta has a normal caliber and appearance. CT pelvis without contrast demonstrates no significant finding. No pelvic mass, free fluid, or focal inflammatory changes noted. The appendix is not identified. Visualized lung bases are clear. Review of osseous structures does not demonstrate any significant acute abnormality related to the sk eletal system. IMPRESSION: 1. No acute finding within the abdomen or pelvis. Signer Name: Orin Phelps MD Signed: 09/23/2021 2:03 PM Workstation Name: [id number]
[2021-09-23] MEDS: PANTOPRAZOLE 40 MG INJ IV ONE (14:30)
[2021-09-23 14:37] VITALS: BP 132/88
--- NOTE | 2021-09-23 18:17 | Electrocardiograph Report ---
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
--- NOTE | 2021-09-23 18:17 | Electrocardiograph Report ---
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
== END 2021-09-23 14:31 | disposition home or self-care (01) ==
LOC: ED 18:59
DX: K92.2 Gastrointestinal hemorrhage, unspecified (principal); D53.9 Nutritional anemia, unspecified; R11.2 Nausea with vomiting, unspecified; I10 Essential (primary) hypertension; I21.9 Acute myocardial infarction, unspecified; E11.9 Type 2 diabetes mellitus without complications; K21.9 Gastro-esophageal reflux disease without esophagitis; R56.9 Unspecified convulsions; J45.909 Unspecified asthma, uncomplicated; G43.909 Migraine, unspecified, not intractable, without status migrainosus; Z86.73 Personal history of transient ischemic attack (TIA), and cerebral infarction without residual deficits; Z98.890 Other specified postprocedural states; Z88.6 Allergy status to analgesic agent; Z88.1 Allergy status to other antibiotic agents; Z88.0 Allergy status to penicillin; Z91.09 Other allergy status, other than to drugs and biological substances; Z79.899 Other long term (current) drug therapy
CPT/HCPCS: 36415; 74176; 80053; 81001; 83690; 85025; 85610; 85730; 93005; 96374; 96375; 99284; J2270; J2405